=== PATIENT | male | born 1995 | race African-American/Black ===

== ENCOUNTER 2018-02-13 11:22 | Emergency (ER) | payer SELFPAY ==
--- NOTE | 2018-02-13 12:27 | EDPHY ---
H & P Time Seen by Provider: 02/13/18 12:27 HPI/ROS: Chief complaint. Cough, pain in lungs HPI. 22-year-old male with right posterior back pain for 2 days. Worse with taking a deep breath and coughing. No trauma. He has had a productive cough for about a week. No fever. No unusual leg pain or swelling. No recent travel. No history of lung problems. Again pain is worse with deep breathing and cough. No shortness of breath however. ROS Constitutional. no fever/chills, no weakness Eyes. no problems with vision ENT. no sore throat, no nasal drainage Cardiovascular. Right posterior chest pain Respiratory. Cough Abdominal. no abdominal pain, no nausea/vomiting, no diarrhea . no problems urinating MS. no calf pain/swelling, no neck/back pain, no joint pain Skin. no rash Lymph. no swollen glands Neuro. no headache, no dizziness, no difficulty walking or with speech Past Medical/Surgical History: Migraine headaches Social History: Single, nonsmoker, no alcohol Smoking Status: Current every day smoker Physical Exam: General Appearance: Alert well-developed male mild distress vital signs are stable Eyes: Pupils equal and round no pallor or injection. ENT, Mouth: Mucous membranes are moist. Respiratory: There are no retractions, lungs are clear to auscultation. Cardiovascular: Regular rate and rhythm. Gastrointestinal: Abdomen is soft and nontender, no masses, bowel sounds normal. Neurological: Awake and alert, sensory and motor exams grossly normal. Skin: Warm and dry, no rashes. Musculoskeletal: Neck is supple nontender. Tenderness to palpation inferior to the right scapular tip. Extremities symmetrical, full range of motion. Psychiatric: Patient is oriented X 3, there is no agitation. Constitutional: Initial Vital Signs Temperature (C) 36.9 C 02/13/18 11:32 Heart Rate 84 02/13/18 11:32 Respiratory Rate 16 02/13/18 11:32 Blood Pressure 116/80 02/13/18 11:32 O2 Sat (%) 96 02/13/18 11:32 O2 Delivery Mode Room Air Allergies/Adverse Reactions: No Known Allergies Allergy (Unverified 02/13/18 11:32) Home Medications: Medication Instructions Recorded Benzonatate [Tessalon Pearles (RX)] 100 mg PO Q4-6PRN PRN #14 cap 02/13/18 Medical Decision Making - Diagnostics Imaging Results: Imaging Impressions Chest X-Ray 02/13/18 12:35 Impression: The chest is negative for acute abnormality. Chest x-ray interpreted by me is normal Procedures: IV normal saline. Toradol IV. Patient declines the IV Toradol ED Course/Re-evaluation: Re-evaluation 2:30 p.m. Patient is stable. He and I discussed imaging and lab results. We discussed treatment plan including criteria for return and importance of follow-up and further evaluation. He expresses understanding and agreement Differential Diagnosis: I considered pneumonia, pneumothorax, pulmonary embolus. I suspect that this is musculoskeletal in etiology - Data Points Laboratory Results: Laboratory Results 02/13/18 12:40 02/13/18 12:40 02/13/18 02/13/18 02/13/18 12:40 12:40 12:40 WBC 5.88 10^3/uL 10^3/uL (3.80-9.50) RBC 5.54 10^6/uL 10^6/uL (4.40-6.38) Hgb 15.8 g/dL g/dL (13.7-17.5) Hct 46.9 % % (40.0-51.0) MCV 84.7 fL fL (81.5-99.8) MCH 28.5 pg pg (27.9-34.1) MCHC 33.7 g/dL g/dL (32.4-36.7) RDW 12.2 % % (11.5-15.2) Plt Count 292 10^3/uL 10^3/uL (150-400) MPV 9.8 fL fL (8.7-11.7) Neut % (Auto) 56.8 % % (39.3-74.2) Lymph % (Auto) 32.8 % % (15.0-45.0) [place] % (Auto) 5.8 % % (4.5-13.0) Eos % (Auto) 3.2 % % (0.6-7.6) Baso % (Auto) 1.2 % % (0.3-1.7) Nucleat RBC Rel Count 0.0 % % (0.0-0.2) Absolute Neuts (auto) 3.34 10^3/uL 10^3/uL (1.70-6.50) Absolute Lymphs (auto) 1.93 10^3/uL 10^3/uL (1.00-3.00) Absolute Monos (auto) 0.34 10^3/uL 10^3/uL (0.30-0.80) Absolute Eos (auto) 0.19 10^3/uL 10^3/uL (0.03-0.40) Absolute Basos (auto) 0.07 10^3/uL 10^3/uL (0.02-0.10) Absolute Nucleated RBC 0.00 10^3/uL 10^3/uL (0-0.01) Immature Gran % 0.2 % % (0.0-1.1) Immature Gran # 0.01 10^3/uL 10^3/uL (0.00-0.10) D-Dimer < 0.27 ug/mLFEU ug/mLFEU (0.00-0.50) Sodium 144 mEq/L mEq/L (135-145) Potassium 4.3 mEq/L mEq/L (3.3-5.0) Chloride 106 mEq/L mEq/L (97-110) Carbon Dioxide 28 mEq/l mEq/l (22-31) Anion Gap 10 mEq/L mEq/L (8-16) BUN 14 mg/dL mg/dL (7-23) Creatinine 0.8 mg/dL mg/dL (0.7-1.3) Estimated GFR > 60 Glucose 76 mg/dL mg/dL (70-100) Calcium 9.9 mg/dL mg/dL (8.5-10.4) Medications Given: Discontinued Medications Ketorolac Tromethamine (Toradol) 30 mg IVP EDNOW ONE Stop: 02/13/18 12:36 Last Admin: 02/13/18 12:53 Dose: Not Given Departure - Departure Disposition: Home, Routine, Self-Care Clinical Impression: Thoracic back pain Qualifiers: Chronicity: acute Back pain laterality: right Qualified Code(s): M54.6 - Pain in thoracic spine Condition: Good Instructions: Back Pain (ED) Additional Instructions: Heat to sore area on your back next 2 days. Ibuprofen 600 mg every 6 hr for discomfort. Tessalon Perles to help with Cough. Return for worsening symptoms. Recheck 3-4 days if not improving Referrals: NONE *PRIMARY CARE P,. [Primary Care Provider] - As per Instructions [facility] [Outside] - 3-4 days, if not improved Prescriptions: Benzonatate [Tessalon Pearles (RX)] 100 mg PO Q4-6PRN PRN #14 cap PRN Reason: Cough, Moderate
[2018-02-13] MEDS ORDERED: KETOROLAC 30 MG/1 ML SDV IVP ONE (12:35)
[2018-02-13] MEDS ORDERED: KETOROLAC 15 MG/1 ML SDV ONE (12:49)
[2018-02-13 12:57] LABS: PLATELET COUNT 292 10^3/uL (150-400)
[2018-02-13 14:52] VITALS: BP 119/72
== END 2018-02-13 14:55 | disposition home or self-care (01) ==
DX: M54.6 Pain in thoracic spine (principal); F17.200 Nicotine dependence, unspecified, uncomplicated
CPT/HCPCS: J1885

== ENCOUNTER 2018-06-02 14:37 | Emergency (ER) | payer MEDICAID ==
--- NOTE | 2018-06-02 15:34 | EDPHY ---
General Time Seen by Provider: 06/02/18 15:04 Narrative: CHIEF COMPLAINT: Punched a wall, hand pain HISTORY OF PRESENT ILLNESS: Patient presents with complaints of right hand pain after punching a wall 8 days ago. He noticed a bump and pain in the dorsum of the right hand with severe at 1st. The pain has improved but not resolved. Worse with palpation and movement. Radiates into the fingers. No numbness or tingling. No weakness. No pain in the right wrist, forearm or elbow. No other associated complaints or modifying factors. DOMINANT EXTREMITY: Right-hand dominant ESTABLISHED ORTHOPEDIST: None REVIEW OF SYSTEMS: Ten systems reviewed and are negative unless otherwise noted in the HPI PAST MEDICAL HISTORY: None. Wears corrective glasses PAST SURGICAL HISTORY: No surgical history. SOCIAL HISTORY: Nonsmoker. Lives and works here independently. FAMILY HISTORY: Noncontributory EXAMINATION: General Appearance: Alert, no distress Cardiovascular: Symmetric radial pulses 2+. Brisk cap refill in the fingers of the right hand. Neurological: A&O, light and 2 point sensory symmetric, paste up artist and interossei strength symmetric Skin: Warm and dry, no rash. No laceration or puncture. No ecchymosis. Extremities: Swelling and tenderness of the dorsum of the right hand overlying the 4th metacarpal. There is painful range of motion but complete range of motion of the right hand. No tenderness of the right snuffbox. Psychiatric: Mood and affect normal DIFFERENTIAL DIAGNOSES: Including but not limited to sprain, strain, fracture, dislocation, subluxation MDM: 3:05 p.m. Acute fracture of the right 4th metacarpal, mid shaft with dorsal angulation. He is neuro intact distally with normal cascade. There is no cellulitis, puncture or abscess. Given that has been 8 days with some displacement, I will discuss with hand surgeon. He is resting comfortably in no acute distress. 4:15 p.m. Multiple attempts have been made to contact hand surgeon that have been unsuccessful. Ultimately the patient like to be discharged home without any attempt at reduction of the fracture. I do feel it is reasonable. He will be placed in a volar splint for immobilization. I provided the on-call hand surgeon for him to contact. We discussed ice and elevation. We discussed ED precautions for worsening pain, numbness or tingling. SUPERVISION: This patient was independently evaluated without direct involvement of or examination by the attending physician. - Diagnostics Imaging Results: Imaging Impressions Hand X-Ray 06/02/18 15:01 Impression: Right fourth metacarpal mid diaphysis fracture with dorsal apex angulation. - History Smoking Status: Current every day smoker - Objective Vital Signs: Initial Vital Signs Temperature (C) 98.1 F 06/02/18 14:54 Heart Rate 63 06/02/18 14:54 Respiratory Rate 18 06/02/18 14:54 Blood Pressure 110/69 06/02/18 14:54 O2 Sat (%) 96 06/02/18 14:54 O2 Delivery Mode Room Air Allergies/Adverse Reactions: No Known Allergies Allergy (Unverified 06/02/18 14:59) Home Medications: Medication Instructions Recorded Benzonatate [Tessalon Pearles (RX)] 100 mg PO Q4-6PRN PRN #14 cap 02/13/18 Departure - Departure Disposition: Home, Routine, Self-Care Clinical Impression: Displaced fracture of shaft of fourth metacarpal bone, right hand, initial encounter for closed fracture Condition: Good Instructions: Hand Fracture (ED) Additional Instructions: 1. Keep your splint in place until seen by orthopedist 2. Contact hand surgeon/orthopedist for definitive care this week 3. Ice and elevate the extremity often 4. Anti-inflammatories [id number] as discussed as needed Referrals: Carlos Loza MD [Medical Doctor] - As per Instructions
[2018-06-02 16:28] VITALS: BP 120/84
== END 2018-06-02 16:27 | disposition home or self-care (01) ==
DX: S62.304A Unspecified fracture of fourth metacarpal bone, right hand, initial encounter for closed fracture (principal); W22.8XXA Striking against or struck by other objects, initial encounter